=== PATIENT | female | born 1990 | race African-American/Black ===

== ENCOUNTER 2016-05-08 10:04 | Emergency (ER) ==
--- NOTE | 2016-05-08 10:23 | PROVIDER DOCUMENTATION ---
HPI-EENT General - General Chief Complaint: Earache Stated Complaint: EARACHE Time Seen by Provider: 05/08/16 10:18 Source: patient Allergies/Adverse Reactions: Patient Allergies Allergy/AdvReac Type Severity Reaction Status Date / Time metoclopramide HCl * Allergy Unknown SWELLING Verified 05/08/16 10:25 [From Reglan] Home Medications: Home Medication List Medication Instructions Recorded Confirmed Last Taken Type Acetaminophen with Codeine 1 tab PO PRN PRN 01/24/16 05/08/16 01/23/16 22:00 History [Acetaminophen-Cod #3 Tablet] Cholecalciferol (Vit D3) [Vitamin 1 cap PO DAILY 01/24/16 05/08/16 01/24/16 History D] Cyanocobalamin (Vitamin B-12) 1,000 mcg IM DIRECTED 01/24/16 05/08/16 History [Cyanocobalamin Injection] Multivitamin [Multivitamins] 1 cap PO DAILY 01/24/16 05/08/16 01/24/16 History Amoxicillin/Pot Clavulanate 875 mg PO Q12HR #14 tablet 05/08/16 Unknown Rx [Augmentin] Hydrocodone/APAP 7.5 mg/325 mg 1 each PO Q6H PRN PRN #14 tablet 05/08/16 Unknown Rx [[place]-7.5] Ibuprofen [Motrin] 800 mg PO Q8H PRN PRN #20 tablet 05/08/16 Unknown Rx Levofloxacin [Levaquin] 250 mg PO DAILY 05/08/16 05/08/16 Unknown History Levonorgestrel-Eth Estradiol 1 each PO DAILY 05/08/16 05/08/16 Unknown History [[place]] Omeprazole [Prilosec] 20 mg PO DAILY@0700 #20 capsule 05/08/16 Unknown Rx - History of Present Illness-EENT General Nature of Presenting Problem: Pt is a 26 y/o AA female c chief complaint of recurrent otitis media x one month. She has been seen by her PCP who has given her multiple steroid injections, 2 IM injections of Rocephin, 1 round of Cefdiner, and she is currently taking Levaquin. pt states the ear infection has not improved. Pt denies any nausea, vomiting, fever. She has diminished hearing on the L. On arrival, pt is in minimal distress. Review of Systems - Adult - REVIEW OF SYSTEMS - ADULT Constitutional: reports: no symptoms reported. denies: chills, fatique Eyes: reports: no symptoms reported. denies: blurred vision, double vision Ears, Nose, Mouth & Throat: reports: ear pain, hearing loss. denies: ear discharge, nose pain Cardiovascular: reports: no symptoms reported. denies: chest pain, orthopnea Respiratory: reports: no symptoms reported. denies: cough, shortness of breath Gastrointestinal: reports: no symptoms reported. denies: abdominal pain, nausea Genitourinary: reports: no symptoms reported. denies: dysuria, flank pain Musculoskeletal: reports: no symptoms reported. denies: joint pain, joint swelling Integumentary: reports: no symptoms reported. denies: hives, itching, rash Neurological: reports: no symptoms reported. denies: numbness, paresthesia Psychiatric: reports: no symptoms reported. denies: anxiety, emotional problems Endocrine: reports: no symptoms reported. denies: cold intolerance, heat intolerance Hematologic/Lymphatic: reports: no symptoms reported. denies: blood clots, low blood count Allergic/Immunologic: reports: no symptoms reported. denies: allergic reactions , eczema All Other Systems: Reviewed and Negative Past History - Adult - PAST MEDICAL HISTORY-ADULT Review of Records: reports: Old Records Reviewed, Nursing Assessment Review, Medications Reviewed, Social history reviewed & non-contributory. Major Childhood Illnesses: reports: denies history Cardiovascular: reports: denies history Respiratory: reports: denies history Gastrointestinal: reports: GERD, other (gastritis, duodinitis, gastroparesis, chronic vomiting) Obstetrical/Gynecological: reports: denies history Genitourinary: reports: denies history Musculoskeletal: reports: denies history Neurological: reports: headaches/migraines Endocrine/Immune: reports: anemia, other (autoimmune dx) Other Conditions: reports: denies history - PRIOR SURGERIES/PROCEDURES Surgical/Procedure History: reports: none, other (EGD/colonoscopy 2 weeks ago) - IMMUNIZATION STATUS Childhood Immunizations: See Nurse Assessment Flu Vaccine: See Nurse Assessment - FAMILY HISTORY Family History: reviewed, not pertinent - SOCIAL HISTORY Smoking: denies Substance Use: none/never Alcohol Use Frequency: never Living Situation: family Physical Exam- EENT - Physical Exam EENT Initial Vital Signs Reviewed: Yes General Appearance: appears well, alert, no apparent distress Eye Exam: bilateral eye: normal inspection, PERRL, EOMI Ear Exam: right ear: canal normal, TM normal, left ear: TM dull, TM bulging, bilateral ear: auricle normal Nasal Exam: normal inspection Throat Exam: normal mouth inspection, pharynx normal, dental tenderness Neck: non-tender, full range of motion, supple Respiratory: chest non-tender, lungs clear, normal breath sounds Cardiovascular: normal peripheral pulses, regular rate, rhythm Abdominal Exam: normal bowel sounds, non tender, soft Back Exam: normal inspection, no CVA tenderness, no vertebral tenderness Extremity: normal range of motion, non-tender, normal gait Integumentary: normal color, normal turgor, warm/dry Neurologic: grossly normal, no motor/sensory deficits Psych/Mental Status: normal mood/affect, normal thought content, normal thought process, oriented x 3 Progress - PLAN OF CARE/RESULTS Progress/Plan/Lab Results: Orders Category Date Time Status Hydrocodone/APAP 10 mg/325 mg [[place]-10] Med 05/08/16 11:10 Discontinued 1 each PO NOW ONE Vital Signs - 24 hr 05/08/16 10:12 Temperature 98.2 F Pulse Rate 82 Respiratory 18 Rate Blood Pressure 129/86 O2 Sat by Pulse 100 Oximetry - CONSULTS/PCP/HOSPITALIST Notification #1 *Consult/PCP/Hospitalist*: [facility] Time Discussed: 10:30 (Spoke to the nurse who stated that she talked with Dr. Chavez who did not want to see pt in clinic today. Pt can follow up with ENT next week.) #2 Consult: Dr. Grady & Dr. Wheeler's Nurse (call coverage ENT) Time Discussed: 11:01 (Will see pt at 9:45am on Wednesday.) Departure - Departure Time of Disposition Order: 10:59 DIAGNOSIS: Otitis media Qualifiers: Otitis media type: mucoid Laterality: left Chronicity: unspecified Qualified Code(s): H65.92 - Unspecified nonsuppurative otitis media, left ear Disposition: HOME 01 Certified Medical Emergency: Emergent Condition: Stable Additional Instructions: ED Follow Up Instructions: You have been treated by a care provider in the Emergency Department. These instructions are being provided to you so you can have an understanding of how to care for yourself upon discharge. Upon discharge from the Emergency Department, you are responsible for making arrangements for follow-up care by a physician of your choice. Take all prescribed medications as directed. Return to the Emergency Department immediately for any new or worsening symptoms. You may call the Physician Referral phone number at [phone] to obtain a list of Physicians who are taking new patients. Prescriptions: Amoxicillin/Pot Clavulanate [Augmentin] 875 mg PO Q12HR #14 tablet Ibuprofen [Motrin] 800 mg PO Q8H PRN PRN #20 tablet PRN Reason: inflammation Hydrocodone/APAP 7.5 mg/325 mg [[place]-7.5] 1 each PO Q6H PRN PRN #14 tablet PRN Reason: Pain Omeprazole [Prilosec] 20 mg PO DAILY@0700 #20 capsule Referrals: Ronald Crum [Primary Care Provider] - Riaz MD [STAFF PHYSICIAN] - (Follow up in clinic on Wednesday at 9: 45am.) Attestation - Physician/ DIANE Attestation Patient care was provided by Advanced Practice Provider:: Yes Advanced Practice Provider:: Mahad Sinclair Advanced Practice Provider documentation review:: The Mid-level provider documentation, treatment plan and medical decision making was reviewed by the physician who agrees with all treatment and medical decision making by the [facility].
[2016-05-08] MEDS ORDERED: NORCO-10 PO ONE (11:10)
[2016-05-08 11:57] VITALS: BP 151/87
== END 2016-05-08 12:02 | disposition home or self-care (01) ==
LOC: ED 10:04
DX: H65.92 Unspecified nonsuppurative otitis media, left ear (principal); H92.02 Otalgia, left ear; H91.92 Unspecified hearing loss, left ear